=== PATIENT | female | born 1945 | race Asian ===

== ENCOUNTER 2016-06-21 10:18 | Outpatient (CLI) | payer OTHER, MEDICARE | END 2016-06-21 20:04 | disposition home or self-care (01) | LOC: RAD 10:18 | DX: M25.512 Pain in left shoulder (principal) ==

== ENCOUNTER 2016-06-28 12:53 | Outpatient (CLI) | payer OTHER, MEDICARE | END 2016-06-28 20:12 | disposition home or self-care (01) | LOC: MAMMO 12:53 → RAD 13:30 → MAMMO 20:12 | DX: M54.12 Radiculopathy, cervical region (principal); Z12.31 Encounter for screening mammogram for malignant neoplasm of breast; M81.8 Other osteoporosis without current pathological fracture; M85.88 Other specified disorders of bone density and structure, other site | CPT/HCPCS: G0202-TC ==

== ENCOUNTER 2020-10-29 08:46 | Outpatient (CLI) | payer OTHER | END 2020-10-29 23:01 | disposition home or self-care (01) | LOC: RAD 08:46 | PROVIDERS: ATTEND Nurse Practitioner Family | DX: M25.512 Pain in left shoulder (principal); M54.2 Cervicalgia ==

== ENCOUNTER 2022-11-24 09:07 | Outpatient (CLI) | payer OTHER | END 2022-11-24 18:59 | disposition home or self-care (01) | LOC: RAD 09:07 | PROVIDERS: ATTEND Nurse Practitioner Family | DX: Z13.820 Encounter for screening for osteoporosis (principal); Z12.31 Encounter for screening mammogram for malignant neoplasm of breast; N95.8 Other specified menopausal and perimenopausal disorders ==